=== PATIENT | male | born 1955 | race Caucasian/White ===

== ENCOUNTER 2018-04-12 21:05 | Emergency (ER) | payer OTHER ==
[~2018-04-12] VITALS: Ht 165.1 cm; Wt 84.0 kg
[2018-04-12 21:09] VITALS: BP 150/86
[2018-04-12] MEDS: KETOROLAC 30 MG/ML VIAL IVP ONE (22:11)
[2018-04-12] MEDS: ONDANSETRON 4 MG/2 ML VIAL IVP ONE (22:11)
[2018-04-12] MEDS: NACL 0.9% 1,000 ML IV ONE (22:11)
[2018-04-12 22:13] LABS: BASOPHILS % (AUTO) 0.4 % (0.0-2.0); EOSINOPHILS # (AUTO) 0.2 K/uL (0-0.4); EOSINOPHILS % (AUTO) 2.1 % (0.0-4.0); HEMOGLOBIN 15.5 g/dL (12.0-18.0); LYMPHOCYTES # (AUTO) 3.2 K/uL (2.0-11.5); LYMPHOCYTES % (AUTO) 39.8 % (20.5-51.1); MEAN CORPUSCULAR HEMOGLOBIN 30 pg (27-31); MEAN CORPUSCULAR HGB CONC 34 g/dL (33-37); MEAN CORPUSCULAR VOLUME 90.1 fL (80-94); MONOCYTES # (AUTO) 0.7 K/uL (0.8-1.0); MONOCYTES % (AUTO) 9.2 % (1.7-9.3); NEUTROPHILS # (AUTO) 3.9 K/uL (1.8-7.7); NEUTROPHILS % (AUTO) 48.5 % (42.2-75.2); PLATELET COUNT (AUTO) 142 K/uL (140-450); RED BLOOD CELL COUNT(AUTO) 5.11 MIL/uL (4.20-6.10); RED CELL DISTRIBUTION WIDTH 13.2 % (11.6-13.7)
[2018-04-12 22:25] LABS: ANION GAP 12.7 (8-16); CARBON DIOXIDE 26.7 mmol/L (21-32); CREATININE 1.1 mg/dL (0.7-1.3); POTASSIUM 3.4 mmol/L (3.5-5.1)
[2018-04-12 22:39] LABS: TOTAL BILIRUBIN 0.6 mg/dL (0.0-1.0)
[2018-04-12 23:39] VITALS: BP 134/75
== END 2018-04-12 23:39 | disposition home or self-care (01) ==
LOC: MED 21:05
DX: K52.9 Noninfective gastroenteritis and colitis, unspecified (principal)
CPT/HCPCS: 36415; 74176; 80053; 85025; 96361; 96374; 96375; 99285; J1885; J2405; J7030

== ENCOUNTER 2018-07-17 18:48 | Emergency (ER) | payer OTHER ==
[~2018-07-17] VITALS: Ht 162.6 cm; Wt 74.8 kg
--- NOTE | 2018-07-17 18:53 | NUR ---
PT AMBULATES TO BED 10
[2018-07-17 18:56] VITALS: BP 118/81
--- NOTE | 2018-07-17 19:00 | NUR ---
PATIENT IS A 62 Y/O MALE WHO PRESENTS TO THE ED C/O ABD PAIN. PT STATES THAT IT HAS BEEN GOING ON X2 DAYS. PT REPORTS 9/10 SHARP DIFFUSE ABD PAIN THAT DOES NOT RADIATE. PT DENIES CP, SOB, N/V/D. PT AWAKE AND ALERT, RR EVEN/UNLABORED. PT REPOSITIONED FOR COMFORT, BED IN LOWEST POSITION. ER MD DR. HARO NOTIFIED. WILL CONTINUE TO MONITOR.
[2018-07-17] MEDS ORDERED: NACL 0.9% 1,000 ML IV SCH (20:01)
[2018-07-17] MEDS ORDERED: MORPHINE SULFATE 4 MG/ML SYR IVP ONE (20:05)
[2018-07-17] MEDS ORDERED: ONDANSETRON 4 MG/2 ML VIAL IVP ONE (20:05)
[2018-07-17 20:19] LABS: BASOPHILS % (AUTO) 0.4 % (0.0-2.0); EOSINOPHILS # (AUTO) 0.2 K/uL (0-0.4); EOSINOPHILS % (AUTO) 1.8 % (0.0-4.0); HEMATOCRIT 41.5 % (36-52); HEMOGLOBIN 13.7 g/dL (12.0-18.0); LYMPHOCYTES # (AUTO) 2.9 K/uL (2.0-11.5); LYMPHOCYTES % (AUTO) 33.9 % (20.5-51.1); MEAN CORPUSCULAR HEMOGLOBIN 30 pg (27-31); MEAN CORPUSCULAR HGB CONC 33 g/dL (33-37); MEAN CORPUSCULAR VOLUME 91.5 fL (80-94); MONOCYTES # (AUTO) 0.7 K/uL (0.8-1.0); MONOCYTES % (AUTO) 8.4 % (1.7-9.3); NEUTROPHILS # (AUTO) 4.8 K/uL (1.8-7.7); NEUTROPHILS % (AUTO) 55.5 % (42.2-75.2); PLATELET COUNT (AUTO) 108 K/uL (140-450); RED BLOOD CELL COUNT(AUTO) 4.54 MIL/uL (4.20-6.10); RED CELL DISTRIBUTION WIDTH 14.6 % (11.6-13.7); WHITE BLOOD COUNT (AUTO) 8.6 K/uL (4.8-10.8)
[2018-07-17 20:21] LABS: APPEARANCE,URINE CLEAR (CLEAR); BILIRUBIN,URINE NEGATIVE (NEGATIVE); BLOOD, URINE NEGATIVE (NEGATIVE); COLOR,URINE YELLOW (YELLOW); LEUKOCYTE ESTERASE ,URINE NEGATIVE (NEGATIVE); NITRITE, URINE NEGATIVE (NEGATIVE); UGLUCOSE NEGATIVE (NEGATIVE)
[2018-07-17 20:41] LABS: ANION GAP 10.6 (8-16); CARBON DIOXIDE 28.8 mmol/L (21-32); POTASSIUM 3.4 mmol/L (3.5-5.1)
[2018-07-17 20:47] LABS: ALBUMIN 4.1 g/dL (3.4-5.0); TOTAL BILIRUBIN 0.7 mg/dL (0.0-1.0)
--- NOTE | 2018-07-17 21:00 | NUR ---
PATIENT TAKEN TO CT.
--- NOTE | 2018-07-17 21:09 | NUR ---
PATIENT RETURN FROM CT.
[2018-07-17] MEDS ORDERED: LEVOFLOXACIN 750 MG TAB PO ONE (22:00)
[2018-07-17] MEDS ORDERED: metroNIDAZOLE 500 MG/NS PREMIX 100 ML IV ONE (22:00)
--- NOTE | 2018-07-17 22:10 | NUR ---
LATE ENTRY: 2199, ADMINISTERED METRONIDAZOLE 100ML AT L AC 18 AT 100ML/HR 2215, NADR 2300, COMPLETED INFUSION OF METRONIDAZOLE, TOTAL VOLUME INFUSED 100 ML Addendum: 07/23/18 at 0649 by MEDDCV LATE ENTRY: 07/17/182199, ADMINISTERED METRONIDAZOLE 100ML AT L AC 18 AT 100ML/HR 2215, NADR 2300, COMPLETED INFUSION OF METRONIDAZOLE, TOTAL VOLUME INFUSED 100 ML
[2018-07-17] MEDS ORDERED: TAMS0.4C96 PO (22:39)
[2018-07-18 00:09] VITALS: BP 129/89
--- NOTE | 2018-07-18 00:10 | NUR ---
Patient discharged with v/s stable. Written and verbal after care instructions given and explained. Patient alert, oriented and verbalized understanding of instructions. Ambulatory with steady gait. All questions addressed prior to discharge. ID band removed. Patient advised to follow up with PMD. Rx of LEVAQUIN, FLAGYL, TRAMADOL given. Patient educated on indication of medication including possible reaction and side effects. Opportunity to ask questions provided and answered.
== END 2018-07-18 00:09 | disposition home or self-care (01) ==
LOC: MED 18:48
DX: K57.92 Diverticulitis of intestine, part unspecified, without perforation or abscess without bleeding (principal); K80.20 Calculus of gallbladder without cholecystitis without obstruction
CPT/HCPCS: 36415; 74176; 80053; 81003; 83690; 85025; 96365; 96375; 99285; J2270; J2405; J3490; J7030

== ENCOUNTER 2022-05-25 18:23 | Emergency (ER) | payer OTHER ==
[~2022-05-25] VITALS: Ht 165.1 cm; Wt 86.2 kg
[~2022-05-25 18:23] MED LIST: TAMS0.4C96 PO
[2022-05-25 18:53] VITALS: BP 165/91
--- NOTE | 2022-05-25 19:00 | NUR ---
PT AMB TO BED 4
[2022-05-25] MEDS ORDERED: ASPIRIN 81 MG TAB.CHEW PO ONE (19:10)
--- NOTE | 2022-05-25 19:20 | NUR ---
COMMUNICATIONS PROJECT LEAD AT BEDSIDE
--- NOTE | 2022-05-25 19:31 | NUR ---
XRAY AT BEDSIDE
[2022-05-25 19:40] LABS: BASOPHILS % (AUTO) 0.6 % (0.0-2.0); EOSINOPHILS # (AUTO) 0.3 K/uL (0-0.4); EOSINOPHILS % (AUTO) 3.7 % (0.0-4.0); HEMATOCRIT 44.1 % (36-52); HEMOGLOBIN 14.9 g/dL (12.0-18.0); LYMPHOCYTES # (AUTO) 3.7 K/uL (2.0-11.5); LYMPHOCYTES % (AUTO) 45.2 % (20.5-51.1); MEAN CORPUSCULAR HEMOGLOBIN 31 pg (27-31); MEAN CORPUSCULAR HGB CONC 34 g/dL (33-37); MEAN CORPUSCULAR VOLUME 92.7 fL (80-94); MONOCYTES # (AUTO) 0.6 K/uL (0.8-1.0); MONOCYTES % (AUTO) 7.8 % (1.7-9.3); NEUTROPHILS # (AUTO) 3.5 K/uL (1.8-7.7); NEUTROPHILS % (AUTO) 42.7 % (42.2-75.2); PLATELET COUNT (AUTO) 155 K/uL (140-450); RED BLOOD CELL COUNT(AUTO) 4.76 MIL/uL (4.20-6.10); RED CELL DISTRIBUTION WIDTH 13.8 % (11.6-13.7); WHITE BLOOD COUNT (AUTO) 8.2 K/uL (4.8-10.8)
--- NOTE | 2022-05-25 20:12 | NUR ---
66 Y/O MALE BIBS FROM HOME, C/O CP SINCE 0900 THIS MORNING. PATIENT PRESENTS TO ED WITH NON RADIATING SUBSTERNAL PRESSURE 8/10 SINCE 0900. DENIES N/V/D; SKIN IS PINK/WARM/DRY; AAOX4 WITH EVEN AND STEADY GAIT; LUNGS CLEAR BL; HR EVEN AND REGULAR; PT DENIES ANY FEVER, PEDAL EDEMA, SOB, OR COUGH AT THIS TIME; PATIENT STATES PAIN OF 8/10 AT THIS TIME; VSS; PATIENT POSITIONED FOR COMFORT; HOB ELEVATED; BEDRAILS UP X2; BED DOWN. ER MD MADE AWARE OF PT STATUS. HX: PROSTATE NKA
[2022-05-25 20:15] LABS: ALBUMIN 3.8 g/dL (3.4-5.0); ANION GAP 10.1 (8-16); CARBON DIOXIDE 26.3 mmol/L (21-32); POTASSIUM 3.4 mmol/L (3.5-5.1); TOTAL BILIRUBIN 0.7 mg/dL (0.0-1.0)
--- NOTE | 2022-05-25 20:47 | NUR ---
Dr. Ricci examining patient.
--- NOTE | 2022-05-25 20:48 | NUR ---
ER MD AT BEDSIDE DISCUSSING RESULTS
[2022-05-25] MEDS ORDERED: IBUP-2213 PO (21:05)
[2022-05-25 21:14] VITALS: BP 133/80
--- NOTE | 2022-05-25 21:15 | NUR ---
Patient discharged with v/s stable. Written and verbal after care instructions given and explained. Patient alert, oriented and verbalized understanding of instructions. Ambulatory with steady gait. All questions addressed prior to discharge. ID band removed. Patient advised to follow up with PMD. Rx of IBUPROFEN given. Patient educated on indication of medication including possible reaction and side effects. Opportunity to ask questions provided and answered. VSS, A/OX4, UNLABORED BREATHING, AMBULATORY, AND CALM DEMEANOR.
== END 2022-05-25 21:15 | disposition home or self-care (01) ==
LOC: MED 18:23
DX: R07.89 Other chest pain (principal); E11.9 Type 2 diabetes mellitus without complications; R06.02 Shortness of breath; Z79.899 Other long term (current) drug therapy
CPT/HCPCS: 36415; 71045; 80053; 83880; 84484; 85025; 93005; 99285

== ENCOUNTER 2022-10-12 06:08 | Emergency (ER) | payer OTHER ==
[~2022-10-12] VITALS: Ht 165.1 cm; Wt 83.9 kg
[~2022-10-12 06:08] MED LIST changes: +IBUP-2213 PO
[2022-10-12 06:20] VITALS: BP 148/80
--- NOTE | 2022-10-12 06:20 | NUR ---
TO BED AMBULATORY
[2022-10-12] MEDS ORDERED: ONDANSETRON 4 MG/2 ML VIAL IVP ONE (06:50)
[2022-10-12] MEDS ORDERED: NACL 0.9% 1,000 ML IV ONE (06:50)
[2022-10-12] MEDS ORDERED: MORPHINE SULFATE 4 MG/ML SYR IVP ONE (06:50)
--- NOTE | 2022-10-12 07:00 | NUR ---
PT WALKED IN C/O GENERALIZED ABD PAIN ONSET 3DAYS. DENIES NVD AT THIS TIME. AFEBRILE. DENIES TRAUMA TO ABD. AAO4, AMBULATORY. NO ACUTE DISTRESS NOTED
--- NOTE | 2022-10-12 07:22 | NUR ---
PT WENT TO CT
--- NOTE | 2022-10-12 07:45 | NUR ---
IV ESTABLISHED TO LEFT HAND WITH 20G. BLOOD DRAWN AND SENT TO LAB.
[2022-10-12 08:12] LABS: BASOPHILS % (AUTO) 0.6 % (0.0-2.0); EOSINOPHILS # (AUTO) 0.2 K/uL (0-0.4); EOSINOPHILS % (AUTO) 2.9 % (0.0-4.0); HEMATOCRIT 48.4 % (36-52); HEMOGLOBIN 16.1 g/dL (12.0-18.0); LYMPHOCYTES # (AUTO) 2.8 K/uL (2.0-11.5); LYMPHOCYTES % (AUTO) 44.9 % (20.5-51.1); MEAN CORPUSCULAR HEMOGLOBIN 31 pg (27-31); MEAN CORPUSCULAR HGB CONC 33 g/dL (33-37); MEAN CORPUSCULAR VOLUME 92.9 fL (80-94); MONOCYTES # (AUTO) 0.6 K/uL (0.8-1.0); MONOCYTES % (AUTO) 9.2 % (1.7-9.3); NEUTROPHILS # (AUTO) 2.6 K/uL (1.8-7.7); NEUTROPHILS % (AUTO) 42.4 % (42.2-75.2); PLATELET COUNT (AUTO) 152 K/uL (140-450); RED BLOOD CELL COUNT(AUTO) 5.22 MIL/uL (4.20-6.10); RED CELL DISTRIBUTION WIDTH 13.1 % (11.6-13.7); WHITE BLOOD COUNT (AUTO) 6.2 K/uL (4.8-10.8)
--- NOTE | 2022-10-12 08:12 | NUR ---
URINE COLLECTED AND SENT TO LAB
[2022-10-12 08:36] LABS: ALBUMIN 3.8 g/dL (3.4-5.0); CARBON DIOXIDE 28.2 mmol/L (21-32); POTASSIUM 4.2 mmol/L (3.5-5.1); TOTAL BILIRUBIN 0.9 mg/dL (0.0-1.0)
[2022-10-12] MEDS ORDERED: AMOX1TAB8 PO (08:43)
[2022-10-12] MEDS ORDERED: ACET-10509 PO (08:43)
[2022-10-12] MEDS ORDERED: IBUP-2213 PO (08:43)
[2022-10-12 08:44] VITALS: BP 136/72
--- NOTE | 2022-10-12 09:00 | NUR ---
Patient discharged with v/s stable. Written and verbal after care instructions given and explained. Patient alert, oriented and verbalized understanding of instructions. Ambulatory with steady gait. All questions addressed prior to discharge. ID band removed. Patient advised to follow up with PMD.Patient educated on indication of medication including possible reaction and side effects. Opportunity to ask questions provided and answered.
== END 2022-10-12 09:00 | disposition home or self-care (01) ==
LOC: MED 06:08
DX: K52.9 Noninfective gastroenteritis and colitis, unspecified (principal); R11.2 Nausea with vomiting, unspecified; R19.7 Diarrhea, unspecified; E11.9 Type 2 diabetes mellitus without complications; Z79.899 Other long term (current) drug therapy
CPT/HCPCS: 36415; 74176; 80053; 85025; 96361; 96374; 96375; 99284; J2270; J2405; J7030

== ENCOUNTER 2023-04-04 19:30 | Emergency (ER) | payer OTHER ==
[~2023-04-04] VITALS: Ht 162.6 cm; Wt 84.4 kg
[~2023-04-04 19:30] MED LIST changes: +ACET-10509 PO; +AMOX1TAB8 PO
[2023-04-04 19:42] VITALS: BP 154/92
[2023-04-04 21:01] LABS: BASOPHILS # (AUTO) 0.1 K/uL (0.00-0.22); BASOPHILS % (AUTO) 0.9 % (0.0-2.0); EOSINOPHILS # (AUTO) 0.5 K/uL (0-0.4); EOSINOPHILS % (AUTO) 6.9 % (0.0-4.0); HEMATOCRIT 45.5 % (36-52); HEMOGLOBIN 15.4 g/dL (12.0-18.0); LYMPHOCYTES # (AUTO) 3.2 K/uL (2.0-11.5); MEAN CORPUSCULAR HEMOGLOBIN 31 pg (27-31); MEAN CORPUSCULAR HGB CONC 34 g/dL (33-37); MEAN CORPUSCULAR VOLUME 91.1 fL (80-94); MONOCYTES # (AUTO) 0.6 K/uL (0.8-1.0); MONOCYTES % (AUTO) 8.6 % (1.7-9.3); NEUTROPHILS # (AUTO) 2.6 K/uL (1.8-7.7); NEUTROPHILS % (AUTO) 37.6 % (42.2-75.2); PLATELET COUNT (AUTO) 143 K/uL (140-450); RED CELL DISTRIBUTION WIDTH 13.8 % (11.6-13.7)
[2023-04-04] MEDS ORDERED: ALBU0.0912 INH ×2 (22:32→23:11)
[2023-04-04 22:41] LABS: ANION GAP 12.6 (8-16); CARBON DIOXIDE 28.3 mmol/L (21-32); CREATININE 1.1 mg/dL (0.6-1.3); POTASSIUM 3.9 mmol/L (3.5-5.1); TOTAL BILIRUBIN 0.7 mg/dL (0.0-1.0)
--- NOTE | 2023-04-04 23:10 | NUR ---
Pt seen and evaluated by AYANNA
[2023-04-04 23:12] VITALS: BP 154/92
--- NOTE | 2023-04-04 23:12 | NUR ---
Patient discharged with v/s stable. Written and verbal after care instructions given and explained. New rx proventil. Patient verbalized understanding. Ambulatory with steady gait. All questions addressed prior to discharge. Advised to follow up with PMD.
== END 2023-04-04 23:12 | disposition home or self-care (01) ==
LOC: MED 19:30
DX: R06.02 Shortness of breath (principal); R05.9 Cough, unspecified; Z79.899 Other long term (current) drug therapy
CPT/HCPCS: 36415; 71046; 80053; 83880; 84484; 85025; 93005; 99285

== ENCOUNTER 2023-05-03 13:18 | Emergency (ER) | payer OTHER ==
[~2023-05-03] VITALS: Ht 167.6 cm; Wt 88.5 kg
[~2023-05-03 13:18] MED LIST changes: +ALBU0.0912 INH
[2023-05-03 13:25] VITALS: BP 162/84
[2023-05-03] MEDS ORDERED: HYDR-636 PO (15:17)
[2023-05-03 15:49] VITALS: BP 140/84
--- NOTE | 2023-05-03 15:49 | NUR ---
Patient discharged with v/s stable. Written and verbal after care instructions FOR ALLERGIES given and explained. Patient alert, oriented and verbalized understanding of instructions. Ambulatory with steady gait. All questions addressed prior to discharge. ID band removed. Patient advised to follow up with PMD. Rx of HYDROXYZINE HCL given. Opportunity to ask questions provided and answered.
--- NOTE | 2023-05-03 16:45 | NUR ---
The patient's care was reviewed and supervised by [place] [facility], RN.
== END 2023-05-03 15:49 | disposition home or self-care (01) ==
LOC: MED 13:18
DX: L29.9 Pruritus, unspecified (principal); L20.9 Atopic dermatitis, unspecified; Z79.899 Other long term (current) drug therapy; Z79.1 Long term (current) use of non-steroidal anti-inflammatories (NSAID); Z79.2 Long term (current) use of antibiotics
CPT/HCPCS: 99283